=== PATIENT | female | born 1940 | race Caucasian/White ===

== ENCOUNTER → 2016-08-17 | Outpatient (CLI) | payer MEDICARE, OTHER | END | disposition home or self-care (01) | LOC: PCVCIMAG 13:34 | PROVIDERS: ATTEND Internal Medicine | DX: I65.23 Occlusion and stenosis of bilateral carotid arteries (principal); I25.10 Atherosclerotic heart disease of native coronary artery without angina pectoris; E78.5 Hyperlipidemia, unspecified; I70.1 Atherosclerosis of renal artery; I74.8 Embolism and thrombosis of other arteries; I71.4 Abdominal aortic aneurysm, without rupture; E11.9 Type 2 diabetes mellitus without complications; Z95.1 Presence of aortocoronary bypass graft | CPT/HCPCS: 93005; 93880; G0463 ==

== ENCOUNTER → 2017-02-27 | Outpatient (CLI) | payer MEDICARE | END | disposition home or self-care (01) | LOC: PCVCCLINIC 15:30 | PROVIDERS: ATTEND Internal Medicine | DX: I25.10 Atherosclerotic heart disease of native coronary artery without angina pectoris (principal); E78.5 Hyperlipidemia, unspecified; I10 Essential (primary) hypertension; I65.23 Occlusion and stenosis of bilateral carotid arteries; I70.1 Atherosclerosis of renal artery; I74.8 Embolism and thrombosis of other arteries; I71.4 Abdominal aortic aneurysm, without rupture; E11.9 Type 2 diabetes mellitus without complications; Z95.1 Presence of aortocoronary bypass graft; Z79.891 Long term (current) use of opiate analgesic; Z79.82 Long term (current) use of aspirin; Z79.899 Other long term (current) drug therapy | CPT/HCPCS: 80061; 93005; G0463 ==

== ENCOUNTER → 2017-08-30 | Outpatient (CLI) | payer MEDICARE | END | disposition home or self-care (01) | LOC: PCVCCLINIC 15:54 | DX: I25.10 Atherosclerotic heart disease of native coronary artery without angina pectoris (principal); I10 Essential (primary) hypertension; E78.5 Hyperlipidemia, unspecified; I65.23 Occlusion and stenosis of bilateral carotid arteries; I70.1 Atherosclerosis of renal artery; I74.8 Embolism and thrombosis of other arteries; I71.4 Abdominal aortic aneurysm, without rupture; E11.9 Type 2 diabetes mellitus without complications; Z95.1 Presence of aortocoronary bypass graft; Z87.891 Personal history of nicotine dependence; Z79.899 Other long term (current) drug therapy; Z79.82 Long term (current) use of aspirin | CPT/HCPCS: 80061; 93005; G0463 ==

== ENCOUNTER → 2018-02-14 | Outpatient (CLI) | payer MEDICARE ==
--- NOTE | 2018-02-14 15:24 | PCVCIMAG ---
APPROVED REPORT Indications Stenosis Risk Factors TIA/CVA History Hyperlipidemia Doppler Spectral Velocity Analysis PSV / EDVPSV / EDV ECA (R) 92 / 18 cm/sECA (L) 352 / 10 cm/s dICA (R) 152 / 25 cm/sdICA (L) 83 / 18 cm/s Papo (R) 111 / 27 cm/smICA (L) 115 / 25 cm/s pICA (R) 169 / 37 cm/spICA (L) 166 / 41 cm/s Bulb (R) 99 / 21 cm/sBulb (L) 139 / 21 cm/s dCCA (R) 81 / 17 cm/sdCCA (L) 93 / 22 cm/s mCCA (R) 79 / 9 cm/smCCA (L) 120 / 13 cm/s Vert (R) 106 / 20 cm/sVert (L) 62 / 11 cm/s ICA/CCA 2.09ICA/CCA 1.78 Basic Measurements Blood Pressure: Pulses: Right Left RightLeft Brachial(Sitting) 150/66mmHgTemporal Real Time B-Mode Imaging Vert. (R)AntegradeVert. (L)Retrograde Findings The right carotid bulb has moderately severe calcified plaque. The right proximal internal carotid artery shows 60-70% stenosis. The right common carotid artery shows no significant stenosis. The right external carotid artery shows no significant stenosis. The left carotid bulb has moderately severe plaque. The left proximal internal carotid artery shows 60-70% stenosis. The left common carotid artery shows no significant stenosis. The left external carotid artery shows >90% stenosis. Conclusion 1. Right internal carotid artery stenosis (60-70%) 2. Left internal carotid artery stenosis (60-70%) 3. Antegrade right vertebral flow. Retrograde left vertebral flow
== END | disposition home or self-care (01) ==
LOC: PCVCIMAG 17:07
PROVIDERS: ATTEND Internal Medicine
DX: I25.10 Atherosclerotic heart disease of native coronary artery without angina pectoris (principal); I11.0 Hypertensive heart disease with heart failure; I50.32 Chronic diastolic (congestive) heart failure; I65.23 Occlusion and stenosis of bilateral carotid arteries; I70.1 Atherosclerosis of renal artery; E11.9 Type 2 diabetes mellitus without complications; Z95.1 Presence of aortocoronary bypass graft; Z87.891 Personal history of nicotine dependence; Z79.82 Long term (current) use of aspirin; Z79.899 Other long term (current) drug therapy
CPT/HCPCS: 80061; 93005; 93880; G0463

== ENCOUNTER → 2018-03-14 | Outpatient (CLI) | payer MEDICARE ==
--- NOTE | 2018-03-14 13:02 | PCVCIMAG ---
APPROVED REPORT Study performed: 03/14/2018 12:04:50 EXAM: Comprehensive 2D, Doppler, and color-flow Echocardiogram Patient Location: Echo lab Status: routine BSA: 1.72 HR: 66 bpmBP: 138/60 mmHg Rhythm: NSR Other Information Study Quality: Adequate Risk Factors: Cardiac Risk Factors: HTN, Hyperlipidemia, DM Indications CAD CABG (2006) 2D Dimensions IVSd: 8.91 (7-11mm)LVOT Diam: 19.00 (18-24mm) LVDd: 40.13 mm PWd: 10.50 (7-11mm)Ascending Ao: 33.90 (22-36mm) LVDs: 26.43 (25-40mm) Left Atrium: 32.60 (27-40mm) Aortic Root: 28.43 mm LV Single Plane 4CH: 65.52 % LV Single Plane 2CH: 64.09 % Biplane EF: 64.8 % Volumes Left Atrial Volume (Systole) Single Plane 4CH: 31.89 mLSingle Plane 2CH: 36.34 mL LA ESV Index: 22.00 mL/m2 Aortic Valve AoV Peak Kane.: 1.42 m/s AO Peak Gr.: 8.09 mmHgLVOT Max P.35 mmHg LVOT Max V: 0.92 m/s NAMAN Vmax: 1.79 cm2 Mitral Valve E/A Ratio: 0.7 MV Decel. Time: 271.39 ms MV E Max Kane.: 0.60 m/s MV A Kane.: 0.82 m/s MV PHT: 78.70 ms IVRT: 58.82 ms TDI E/Lateral E': 7.50E/Medial E': 10.00 Medial E' Kane.: 0.06 m/s Lateral E' Kane.: 0.08 m/s Pulmonary Valve PV Peak Kane.: 0.83 m/sPV Peak Gr.: 2.77 mmHg Pulmonary Vein P Vein S: 0.69 m/sP Vein A: 0.31 m/s P Vein D: 0.49 m/sP Vein A Dur.: 86.5 msec P Vein S/D Ratio: 1.41 Tricuspid Valve RAP Estimate: 7.00 mmHg Left Ventricle The left ventricle is normal size. There is normal LV segmental wall motion. There is normal left ventricular wall thickness. Left ventricular systolic function is normal. The left ventricular ejection fraction is within the normal range. LVEF is 65%. Grade I - abnormal relaxation pattern. Right Ventricle The right ventricle is normal size. The right ventricular systolic function is normal. Atria The left atrium size is normal. The right atrium size is normal. Aortic Valve The aortic valve is mildly calcified. No aortic regurgitation is present. There is no aortic valvular stenosis. Mitral Valve There is mild mitral annular calcification. Trace mitral regurgitation. No evidence of mitral valve stenosis. Tricuspid Valve The tricuspid valve is normal in structure. Trace to mild tricuspid regurgitation. Unable to assess PA pressure. Pulmonic Valve The pulmonary valve is normal in structure. There is no pulmonic valvular regurgitation. Great Vessels The aortic root is normal in size. IVC is normal in size and collapses >50% with inspiration. Pericardium There is no pericardial effusion. <Conclusion> Left ventricular systolic function is normal. There is normal LV segmental wall motion. LVEF 65%. Mild diastolic dysfunction The aortic valve is mildly calcified. No aortic regurgitation or stenosis There is mild mitral annular calcification. Trace mitral regurgitation Pulmonary artery pressure could not be reliably ascertained There is no pericardial effusion.
== END | disposition home or self-care (01) ==
LOC: PCVCIMAG 10:49
PROVIDERS: ATTEND Internal Medicine
DX: I25.10 Atherosclerotic heart disease of native coronary artery without angina pectoris (principal); E11.9 Type 2 diabetes mellitus without complications; I10 Essential (primary) hypertension; E78.5 Hyperlipidemia, unspecified
CPT/HCPCS: 93306

== ENCOUNTER → 2018-08-20 | Outpatient (CLI) | payer MEDICARE | END | disposition home or self-care (01) | LOC: PCVCCLINIC 14:18 | PROVIDERS: ATTEND Internal Medicine | DX: I25.10 Atherosclerotic heart disease of native coronary artery without angina pectoris (principal); I65.23 Occlusion and stenosis of bilateral carotid arteries; I10 Essential (primary) hypertension; I70.1 Atherosclerosis of renal artery; E11.9 Type 2 diabetes mellitus without complications; E78.5 Hyperlipidemia, unspecified; I71.4 Abdominal aortic aneurysm, without rupture; Z95.1 Presence of aortocoronary bypass graft; Z88.6 Allergy status to analgesic agent | CPT/HCPCS: 36415; 80061; 93005; G0463 ==

== ENCOUNTER → 2019-02-25 | Outpatient (CLI) | payer MEDICARE ==
--- NOTE | 2019-02-25 11:44 | PCVCIMAG ---
APPROVED REPORT Indications Stenosis Risk Factors Hypertension: Hyperlipidemia Diabetes PAD CAD Doppler Spectral Velocity Analysis PSV / EDVPSV / EDV ECA (R) 66 / 15 cm/sECA (L) 238 / 19 cm/s dICA (R) 81 / 23 cm/sdICA (L) 71 / 22 cm/s Papo (R) 134 / 32 cm/smICA (L) 108 / 21 cm/s pICA (R) 162 / 34 cm/spICA (L) 188 / 43 cm/s Bulb (R) 83 / 20 cm/sBulb (L) 68 / 17 cm/s dCCA (R) 37 / 10 cm/sdCCA (L) 85 / 17 cm/s mCCA (R) 56 / 13 cm/smCCA (L) 85 / 16 cm/s Vert (R) 155 / 32 cm/sVert (L) 68 / 0 cm/s ICA/CCA 4.38ICA/CCA 2.21 Basic Measurements Blood Pressure: Pulses: Right Left RightLeft Brachial(Sitting) 154/92gqAm063/88mmHgTemporal Real Time B-Mode Imaging Vert. (R)AntegradeVert. (L)Retrograde Findings The right carotid bulb has moderately severe calcified plaque. The right proximal internal carotid artery shows 60-70% stenosis. The right common carotid artery shows no significant stenosis. The right external carotid artery shows no significant stenosis. The left carotid bulb has moderately severe calcified plaque. The left proximal internal carotid artery shows 60-70% stenosis. The left common carotid artery shows no significant stenosis. The left external carotid artery shows no significant stenosis. Conclusion 1. Right internal carotid artery stenosis (60-70%). 2. Left internal carotid artery stenosis (60-70%). 3. Antegrade right vertebral flow. Retrograde left vertebral flow, chronic
--- NOTE | 2019-02-25 17:54 | PCVCIMAG ---
EXAM: AORTOILIAC DUPLEX INDICATION: Abdominal aortic aneurysm. FINDINGS: AORTA: Suprarenal aorta measures maximum diameter of 2.5 cm. There is a fusiform infrarenal aortic aneurysm. The infrarenal aorta measures maximum diameter of 3.3 cm. No aortic stenosis. RIGHT COMMON ILIAC ARTERY: Maximum diameter is 1.7 cm. No significant stenosis. RIGHT EXTERNAL ILIAC ARTERY: No significant stenosis. LEFT COMMON ILIAC ARTERY: Maximum diameter is 1.7 cm. No significant stenosis. LEFT EXTERNAL ILIAC ARTERY: No significant stenosis. IMPRESSION: 3.3 cm infrarenal abdominal aortic aneurysm compares to 3.2 cm on February 2016 study. LOC:[id number]
--- NOTE | 2019-02-25 17:57 | PCVCIMAG ---
EXAM: BILATERAL RENAL ULTRASOUND AND BILATERAL RENAL DUPLEX INDICATION: Hypertension. Previous bilateral renal artery stents. FINDINGS: Right kidney: Length measures 11.8 cm. No hydronephrosis or extensive renal scarring. 3.9 x 4.6 x 5.1 cm benign cyst upper pole. Right renal duplex: Adequate technical quality. No sonographic evidence of renal artery stenosis. The aortic to renal artery ratio is 1.8. The renal vein is patent. Left kidney: Length measures 12.3 cm. No hydronephrosis or extensive renal scarring. Left renal duplex: Adequate technical quality. No sonographic evidence of renal artery stenosis. The aortic to renal artery ratio is 1.5. The renal vein is patent. Bladder: No obvious abnormalities. IMPRESSION: No significant renal artery stenosis. No hydronephrosis bilaterally. Incidental note is made systolic arterial pressure right arm 154 mmHg and left arm 106 mmHg raising concern for left subclavian stenosis. LOC:[id number]
== END | disposition home or self-care (01) ==
LOC: PCVCIMAG 09:10
PROVIDERS: ATTEND Internal Medicine
DX: I65.23 Occlusion and stenosis of bilateral carotid arteries (principal); I71.4 Abdominal aortic aneurysm, without rupture; I25.10 Atherosclerotic heart disease of native coronary artery without angina pectoris; I50.32 Chronic diastolic (congestive) heart failure; I11.0 Hypertensive heart disease with heart failure; I70.1 Atherosclerosis of renal artery; E78.5 Hyperlipidemia, unspecified; E11.9 Type 2 diabetes mellitus without complications; Z95.1 Presence of aortocoronary bypass graft; Z88.8 Allergy status to other drugs, medicaments and biological substances; Z79.899 Other long term (current) drug therapy; Z72.89 Other problems related to lifestyle; Z87.891 Personal history of nicotine dependence
CPT/HCPCS: 36415; 76770; 80061; 93005; 93880; 93975; 93978; G0463